=== PATIENT | male | born 1995 | race Caucasian/White ===

== ENCOUNTER 2023-04-01 12:35 | Emergency (ER) | payer OTHER ==
[2023-04-01 12:56] VITALS: BP 130/80; O2SAT 100
--- NOTE | 2023-04-01 12:57 | ED Physician Documentation ---
PD HPI HEENT - Stated complaint Stated Complaint: C+ COUGH/RUNNY NOSE - Chief complaint Chief Complaint: Resp - History obtained from History obtained from: Patient - Additional information Additional information: The patient comes to the emergency department with chief complaint of runny nose and cough and has been positive for COVID at home. He states that he is mainly here because he took 2 COVID test that were positive at home and then went to the sick call today but was told by his command that the paperwork had not been in since sent and it was not sufficient to excuse him from work. The patient denies any shortness of breath. No fevers. He states he just got a call from his commands saying that now they have the paperwork. No other complaints at this time. PD PAST MEDICAL HISTORY - Allergies Allergies/Adverse Reactions: Allergies Allergy/AdvReac Type Severity Reaction Status Date / Time No Known Drug Allergies Allergy Verified 04/01/23 12:39 PD ED PE NORMAL - Vitals Vital signs reviewed: Yes - General General: Alert and oriented X 3, No acute distress, Well developed/nourished - HEENT HEENT: Atraumatic, PERRL, EOMI, Moist mucous membranes - Neck Neck: Supple, no meningeal sign - Cardiac Cardiac: RRR, No murmur - Respiratory Respiratory: No respiratory distress, Clear bilaterally - Derm Derm: Normal color, Warm and dry, No rash - Extremities Extremities: No deformity - Neuro Neuro: Alert and oriented X 3 - Psych Psych: Normal mood, Normal affect Results - Vitals Vitals: Vital Signs - 24 hr 04/01/23 12:39 Temperature 37.2 C Heart Rate 78 Respiratory 16 Rate Blood Pressure 130/80 O2 Saturation 100 Oxygen O2 Source Room air PD Medical Decision Making - ED course Complexity details: reviewed results, re-evaluated patient, considered differential, d/w patient ED course: The patient felt that he should be treated and tested for COVID so that he could have a result ultimately to show to his command. This was done and is pending at this time. We have discussed symptomatic management at home as well as the usual indications for return. Departure - Departure Disposition: 01 Home, Self Care Clinical Impression: Upper respiratory tract infection Qualifiers: URI type: unspecified viral URI Qualified Code(s): J06.9 - Acute upper respiratory infection, unspecified Condition: Stable Instructions: ED Viral Syndrome Comments: You have been tested for COVID today. The results will not be back right away but you should be able to look them up later today by going to our website at [email or web address], clicking on the "my [employer]" tab and signing up for the patient portal. Please follow your workplace's regulations as far as staying home from work while you are sick. You may use ibuprofen, Tylenol, cough drops, and hot soaks to help relieve symptoms. Please be sure you stay well-hydrated. If you develop severe shortness of breath or feel like you are getting significantly worse as far as level of illness, you may return anytime for reevaluation. Forms: Activity restrictions
[2023-04-01 13:47] LABS: B. PARAPERTUSSIS- RESP PCR PAN NOT DETECTED; B. PERTUSSIS- RESP PCR PANEL NOT DETECTED; C. PNEUMONIAE- RESP PCR PANEL NOT DETECTED; CORONAVIRUS 229E-RESP PCR NOT DETECTED; CORONAVIRUS HKU1-RESP PCR NOT DETECTED; CORONAVIRUS NL63-RESP PCR NOT DETECTED; CORONAVIRUS OC43-RESP PCR NOT DETECTED; HUMAN METAPNEUMOVIRUS NOT DETECTED; INFLUENZA A- RESP PCR PANEL NOT DETECTED; INFLUENZA B - RESP PCR PANEL NOT DETECTED; M. PNEUMONIAE- RESP PCR PANEL NOT DETECTED; PARAINFLUENZA VIRUS 1 NOT DETECTED; PARAINFLUENZA VIRUS 2 NOT DETECTED; PARAINFLUENZA VIRUS 3 NOT DETECTED; PARAINFLUENZA VIRUS 4 NOT DETECTED; RHINOVIRUS/ENTEROVIRUS NOT DETECTED; RSV- RESP PCR PANEL NOT DETECTED; SARS-CoV-2 -RESP PCR PANEL DETECTED
== END 2023-04-01 13:02 | disposition home or self-care (01) ==
LOC: ED 12:35
DX: U07.1 COVID-19 (principal); J06.9 Acute upper respiratory infection, unspecified
CPT/HCPCS: 87633; 99283